=== PATIENT | male | born 2000 | race Two or more races ===

== ENCOUNTER → 2021-07-26 | Outpatient (CLI) | payer OTHER ==
--- NOTE | 2021-07-26 10:56 | KCIC ---
MR LUMBAR SPINE WO -[id number], MRI THORACIC SPINE WO History: Reason: HERNIATED DISCS / Spl. Instructions: / History: Injury in 2019 possubly lifting dustin ghts. Middle to low back pain, chronic. Technique: Multiplanar, multi sequential MR imaging was performed of the thoracic and lumbar spine. Comparison: None Findings: Thoracic spine MRI: Normal vertebral body height and alignment. No fracture. Multilevel small disc protrusions most prominent T6-T7, T7-T8, T8-T9 and T9-T10. Mild cord flattening most prominent T7-T8. No canal narrowing. No neuroforaminal narrowing. No pathologic signal or mildly within the thoracic spinal cord. Relative anterior positioning of the thoracic spinal cord at the T7-T9 level. Lumbar spine MRI: Normal vertebral body height and alignment. No fracture. Conus terminates at the normal location. No evidence of nerve root clumping. L1-L2: Minimal disc bulge. No canal or neuroforaminal narrowing. L2-L3: Small disc bulge. No canal or neuroforaminal narrowing. L3-L4: Small disc bulge. No canal narrowing. No neuroforaminal narrowing. L4-L5: Small disc bulge. No canal narrowing. No neuroforaminal narrowing. L5-S1: Disc height loss. Broad-based left paracentral disc protrusion. Mild left subarticular recess narrowing. Mild left neuroforaminal narrowing. Impression: Thoracic spine MRI: 1. Mild thoracic spondylosis most prominent with mild cord flattening T7-T8. 2. Relative anterior positioning of the thoracic spinal cord, may relate to normal variation althoug h small posterior arachnoid cyst is possible. Lumbar spine MRI: 1. Mild lumbar spondylosis most prominent L5-S1. 2. Mild left L5-S1 neuroforaminal narrowing. Electronically signed by: Chidi Dumas DO (07/26/2021 10:54 AM) [facility]
== END ==
LOC: KCIC MRI 08:29
PROVIDERS: ATTEND Family Medicine
DX: M47.814 Spondylosis without myelopathy or radiculopathy, thoracic region (principal); M47.817 Spondylosis without myelopathy or radiculopathy, lumbosacral region; M51.24 Other intervertebral disc displacement, thoracic region; M48.07 Spinal stenosis, lumbosacral region; M51.27 Other intervertebral disc displacement, lumbosacral region
CPT/HCPCS: 72146; 72148